=== PATIENT | female | born 1960 | race African-American/Black ===

== ENCOUNTER 2018-04-10 10:24 | Inpatient (IN) | payer MEDICARE, MEDICAID ==
[~2018-04-10] VITALS: Ht 162.6 cm; Wt 108.0 kg
[~2018-04-10 10:24] MED LIST: GABA-531 PO; LEVO100T9 PO; MULT-1146 PO; OMEP20CA10 PO; QUET300T2 PO; SERT100T PO
[2018-04-10] MEDS ORDERED: FAMOTIDINE 20MG/2ML VIAL IV STA (14:54)
[2018-04-10] MEDS ORDERED: SODIUM CHLORIDE 0.9% 1,000 ML IV ONE (14:54)
[2018-04-10 17:03] LABS: BASOPHILS % 0.4 % (0.0-2.0); EOSINOPHILS % 4.7 % (0.0-5.0); HEMATOCRIT. 37.4 % (36.0-48.0); HEMOGLOBIN. 11.9 g/dL (12.0-16.0); LYMPHOCYTES % 37.5 % (20.0-50.0); MEAN CORPUSCULAR HEMOGLOBIN 29.8 pg (28.0-32.0); MEAN CORPUSCULAR VOLUME 93.5 fL (81.0-99.0); MEAN PLATELET VOLUME 8.1 fl (7.4-10.4); MONOCYTES % 7.2 % (2.0-8.0); NEUTROPHILS % 50.2 % (40.0-76.0); PLATELET 276 x1000/uL (130-400); RED CELL DISTRIBUTION WIDTH 15.2 % (11.6-14.6)
[2018-04-10 17:08] LABS: CHLORIDE 110 mEq/L (98-107)
[2018-04-10 17:10] LABS: INR 1.1; PROTHROMBIN TIME 10.9 sec (9.1-11.1)
[2018-04-10] MEDS ORDERED: ASPIRIN 325MG EC TABLET PO ONE (21:15)
[2018-04-10 21:19] LABS: CLARITY URINE CLEAR (CLEAR); COLOR URINE YELLOW (YELLOW); KETONES URINE NEGATIVE (NEGATIVE); LEUKOCYTE ESTERASE URINE NEGATIVE (NEGATIVE); NITRITE URINE NEGATIVE (NEGATIVE); OCCULT BLOOD URINE TRACE (NEGATIVE); PH URINE 6.5 (4.5-8.0); PROTEIN URINE NEGATIVE (NEGATIVE); SPECIFIC GRAVITY URINE 1.057 (1.005-1.030); UROBILINOGEN URINE 0.2 E.U./dL (0.2-1.0)
[2018-04-10 22:30] VITALS: BP 152/72
[2018-04-10 22:35] VITALS: BP 152/72
[2018-04-10] MEDS ORDERED: IOHEXOL-300 100 ML BOTTLE ONE (22:54)
[2018-04-10] MEDS ORDERED: CALC-1098 MT (23:10)
[2018-04-10] MEDS ORDERED: IBUP-1653 MT (23:10)
[2018-04-11] VITALS: BP 128/67
[2018-04-11] MEDS ORDERED: ONDANSETRON HCL 4MG/2ML INJ IV PRN (01:45)
[2018-04-11] MEDS: PANTOPRAZOLE SODIUM 40 MG/VIAL IV SCH (03:09)
[2018-04-11] MEDS: DEXT 5%/0.45% NACL 1000ML 1,000 ML IV SCH ×3 (03:10→22:30)
[2018-04-11 04:00] VITALS: BP 121/55
[2018-04-11 08:00] VITALS: BP 144/51
[2018-04-11] MEDS: SERTRALINE HCL 100MG TABLET PO SCH (09:03)
[2018-04-11] MEDS: QUETIAPINE FUMARATE 100MG TABLET PO SCH ×2 (09:03→21:17)
[2018-04-11] MEDS: KETOROLAC 15MG/ML VIAL IV PRN ×2 (09:04→17:59)
[2018-04-11 12:01] VITALS: BP 104/29
[2018-04-11] MEDS ORDERED: ASPIRIN 81MG EC TABLET PO NR (12:45)
[2018-04-11 16:13] VITALS: BP 117/61
[2018-04-11] MEDS ORDERED: PANTOPRAZOLE SODIUM 40 MG/VIAL IV SCH (17:30)
[2018-04-11] MEDS: ENOXAPARIN 30MG/0.3ML SYR SUBCUT SCH (18:00)
[2018-04-11 20:00] VITALS: BP 112/55
[2018-04-12] VITALS: BP 116/62
[2018-04-12 04:00] VITALS: BP 110/79
[2018-04-12 06:30] LABS: CHLORIDE 110 mEq/L (98-107)
[2018-04-12 07:09] LABS: BASOPHILS % 0.4 % (0.0-2.0); EOSINOPHILS % 5.7 % (0.0-5.0); HEMOGLOBIN. 10.6 g/dL (12.0-16.0); LYMPHOCYTES % 49.1 % (20.0-50.0); MEAN CORPUSCULAR HEMOGLOBIN 29.8 pg (28.0-32.0); MEAN CORPUSCULAR VOLUME 92.1 fL (81.0-99.0); MEAN PLATELET VOLUME 8.1 fl (7.4-10.4); NEUTROPHILS % 36.8 % (40.0-76.0); PLATELET 231 x1000/uL (130-400); RED BLOOD CELL COUNT 3.58 mill/uL (4.2-5.4); RED CELL DISTRIBUTION WIDTH 14.5 % (11.6-14.6)
[2018-04-12 08:00] VITALS: BP 117/57
[2018-04-12] MEDS: DEXT 5%/0.45% NACL 1000ML 1,000 ML IV SCH (08:30)
[2018-04-12] MEDS: PANTOPRAZOLE SODIUM 40 MG/VIAL IV SCH (09:04)
[2018-04-12] MEDS: SERTRALINE HCL 100MG TABLET PO SCH (09:05)
[2018-04-12] MEDS: ASPIRIN 81MG EC TABLET PO SCH (09:05)
[2018-04-12] MEDS: ENOXAPARIN 30MG/0.3ML SYR SUBCUT SCH ×2 (09:05→21:15)
[2018-04-12] MEDS: QUETIAPINE FUMARATE 100MG TABLET PO SCH ×2 (09:06→21:15)
[2018-04-12 12:00] VITALS: BP 129/62
[2018-04-12 16:00] VITALS: BP 140/78
[2018-04-12] MEDS: AZITHROMYCIN 500 MG in DEXT 5% WATER 250 ML IV SCH (18:14)
[2018-04-12 20:00] VITALS: BP 105/46
[2018-04-13] VITALS: BP 110/54
[2018-04-13 04:00] VITALS: BP 102/41
[2018-04-13] MEDS: DEXT 5%/0.45% NACL 1000ML 1,000 ML IV SCH ×2 (05:06→14:30)
[2018-04-13 08:00] VITALS: BP 111/58
[2018-04-13] MEDS: ENOXAPARIN 30MG/0.3ML SYR SUBCUT SCH (08:17)
[2018-04-13] MEDS: SERTRALINE HCL 100MG TABLET PO SCH (08:17)
[2018-04-13] MEDS: QUETIAPINE FUMARATE 100MG TABLET PO SCH (08:17)
[2018-04-13] MEDS: PANTOPRAZOLE SODIUM 40 MG/VIAL IV SCH (08:17)
[2018-04-13] MEDS: ASPIRIN 81MG EC TABLET PO SCH (08:17)
[2018-04-13 12:00] VITALS: BP 109/73
[2018-04-13 16:00] VITALS: BP 116/55
[2018-04-13] MEDS: AZITHROMYCIN 500 MG in DEXT 5% WATER 250 ML IV SCH (16:03)
[2018-04-13 16:32] VITALS: BP 109/73
[2018-04-16 04:13] LABS: OVA & PARASITE EXAM Final report (.)
== END 2018-04-13 17:45 | disposition home or self-care (01) | DRG 392 ==
LOC: ER 10:43 → 6WST 17:43 → EDBEDREQ 17:47 → ENRESERV 21:20
PROVIDERS: ADMIT Internal Medicine; ATTEND Internal Medicine
DX: A09 Infectious gastroenteritis and colitis, unspecified (principal); I42.9 Cardiomyopathy, unspecified; I50.22 Chronic systolic (congestive) heart failure; Z68.41 Body mass index [BMI] 40.0-44.9, adult; K21.9 Gastro-esophageal reflux disease without esophagitis; D64.9 Anemia, unspecified; E03.9 Hypothyroidism, unspecified; E11.9 Type 2 diabetes mellitus without complications; E66.9 Obesity, unspecified; E78.00 Pure hypercholesterolemia, unspecified; F32.9 Major depressive disorder, single episode, unspecified; F41.9 Anxiety disorder, unspecified; F43.9 Reaction to severe stress, unspecified; I11.0 Hypertensive heart disease with heart failure; K57.90 Diverticulosis of intestine, part unspecified, without perforation or abscess without bleeding; Z79.82 Long term (current) use of aspirin; Z82.49 Family history of ischemic heart disease and other diseases of the circulatory system; Z83.3 Family history of diabetes mellitus; Z85.028 Personal history of other malignant neoplasm of stomach; Z85.3 Personal history of malignant neoplasm of breast; Z90.13 Acquired absence of bilateral breasts and nipples; Z92.21 Personal history of antineoplastic chemotherapy; Z92.3 Personal history of irradiation; Z98.84 Bariatric surgery status; Z88.1 Allergy status to other antibiotic agents; Z88.8 Allergy status to other drugs, medicaments and biological substances; Z90.49 Acquired absence of other specified parts of digestive tract; Z98.51 Tubal ligation status
CPT/HCPCS: 36415; 71045; 74177; 80048; 82270; 82962; 83605; 84484; 87015; 87045; 87177; 87209; 87427; 87449; 87493; 89055; 93005; 93306; 96361; 96374; 99285; C1893; C9113; J0456; J1650; J1885; J3490; J7030; J7060; Q9967

== ENCOUNTER 2020-02-12 12:49 | Emergency (ER) | payer MEDICARE, MEDICAID ==
[~2020-02-12] VITALS: Ht 165.1 cm; Wt 106.0 kg
[~2020-02-12 12:49] MED LIST changes: +CALC-1098 MT; +IBUP-1653 MT; -OMEP20CA10 PO; +OMEP20CA14 PO
[2020-02-12 16:59] LABS: KETONES URINE NEGATIVE (NEGATIVE); LEUKOCYTE ESTERASE URINE NEGATIVE (NEGATIVE); NITRITE URINE NEGATIVE (NEGATIVE); OCCULT BLOOD URINE NEGATIVE (NEGATIVE); PH URINE 5.5 (4.5-8.0); PROTEIN URINE 1+ (NEGATIVE); SPECIFIC GRAVITY URINE 1.033 (1.005-1.030)
[2020-02-12 17:02] LABS: CLARITY URINE HAZY (CLEAR); COLOR URINE DARK YELLOW (YELLOW)
[2020-02-12 17:11] LABS: *AMPHETAMINES SCREEN URINE NEGATIVE (NEGATIVE); *BARBITURATES SCREEN URINE NEGATIVE (NEGATIVE); *BENZODIAZEPINES SCREEN URINE PRESUMTIVE POSITIVE (NEGATIVE); *COCAINE SCREEN URINE NEGATIVE (NEGATIVE); METHADONE URINE SCREEN NEGATIVE (NEGATIVE); OPIATES URINE SCREEN PRESUMTIVE POSITIVE (NEGATIVE); PHENCYCLIDINE URINE SCREEN NEGATIVE (NEGATIVE)
[2020-02-12 17:13] LABS: CANNABINOID URINE SCREEN NEGATIVE (NEGATIVE)
[2020-02-12 17:37] LABS: BASOPHILS % 0.4 % (0.0-2.0); EOSINOPHILS % 1.2 % (0.0-5.0); HEMATOCRIT. 36.3 % (36.0-48.0); HEMOGLOBIN. 11.9 g/dL (12.0-16.0); LYMPHOCYTES % 43.9 % (20.0-50.0); MEAN CORPUSCULAR VOLUME 91.1 fL (81.0-99.0); MEAN PLATELET VOLUME 9.1 fl (7.4-10.4); NEUTROPHILS % 47.5 % (40.0-76.0); PLATELET 156 x1000/uL (130-400); RED BLOOD CELL COUNT 3.98 mill/uL (4.2-5.4); RED CELL DISTRIBUTION WIDTH 13.6 % (11.6-14.6)
[2020-02-12 17:40] LABS: CHLORIDE 108 mEq/L (98-107)
[2020-02-12 18:42] VITALS: BP 128/79
== END 2020-02-12 19:17 | disposition home or self-care (01) ==
LOC: ER 12:49
DX: R07.89 Other chest pain (principal); R10.13 Epigastric pain; K21.9 Gastro-esophageal reflux disease without esophagitis; M19.90 Unspecified osteoarthritis, unspecified site; M25.562 Pain in left knee; M25.561 Pain in right knee; R74.01 Elevation of levels of liver transaminase levels; E46 Unspecified protein-calorie malnutrition; N17.0 Acute kidney failure with tubular necrosis; J98.11 Atelectasis; E87.8 Other disorders of electrolyte and fluid balance, not elsewhere classified; F13.10 Sedative, hypnotic or anxiolytic abuse, uncomplicated; F11.20 Opioid dependence, uncomplicated; Z88.1 Allergy status to other antibiotic agents; Z88.6 Allergy status to analgesic agent; Z79.899 Other long term (current) drug therapy; E78.00 Pure hypercholesterolemia, unspecified; Z98.890 Other specified postprocedural states; Z90.49 Acquired absence of other specified parts of digestive tract; Z98.51 Tubal ligation status; Z90.10 Acquired absence of unspecified breast and nipple
CPT/HCPCS: 36415; 71045; 73560; 80053; 80305; 81003; 83880; 84145; 84484; 85025; 85651; 86141; 93005; 99285

== ENCOUNTER 2020-09-07 16:20 | Emergency (ER) | payer MEDICARE, MEDICAID ==
[~2020-09-07] VITALS: Ht 165.1 cm; Wt 110.0 kg
[~2020-09-07 16:20] MED LIST changes: -GABA-531 PO; +GABA-532 PO
[2020-09-07 20:22] VITALS: BP 131/74
== END 2020-09-07 20:22 | disposition home or self-care (01) ==
LOC: ER 16:33
DX: R60.9 Edema, unspecified (principal); F41.9 Anxiety disorder, unspecified; M19.90 Unspecified osteoarthritis, unspecified site; K59.00 Constipation, unspecified; E11.9 Type 2 diabetes mellitus without complications; E78.00 Pure hypercholesterolemia, unspecified; I51.9 Heart disease, unspecified; Z95.1 Presence of aortocoronary bypass graft; Z90.10 Acquired absence of unspecified breast and nipple; Z90.49 Acquired absence of other specified parts of digestive tract; Z98.51 Tubal ligation status; Z87.440 Personal history of urinary (tract) infections
CPT/HCPCS: 82962; 93970; 99284